=== PATIENT | male | born 1985 | race Two or more races ===

== ENCOUNTER 2023-04-24 21:30 | Emergency (ER) | payer MEDICAID ==
[~2023-04-24] VITALS: Ht 170.2 cm; Wt 81.6 kg
[2023-04-24 22:18] VITALS: BP 136/85; TEMP 98.7; O2SAT 99
[2023-04-24] MEDS ORDERED: TDAP [DIPH/PERTUSSIS/TET] 0.5 ML VIAL IM ONE ×2 (22:30→22:40)
[2023-04-24] MEDS ORDERED: CIPROFLOXACIN HCL 250 MG TABLET PO ONE (22:30)
[2023-04-24] MEDS ORDERED: IBUPROFEN 600 MG TABLET PO ONE (22:30)
[2023-04-24] MEDS ORDERED: CIPR-263 PO (22:37)
[2023-04-24] MEDS ORDERED: CIPROFLOXACIN HCL 500 MG TABLET ONE ×2 (22:39→22:41)
[2023-04-24] MEDS ORDERED: IBUPROFEN 600 MG TABLET ONE ×2 (22:40→22:42)
== END 2023-04-24 22:55 | disposition home or self-care (01) ==
LOC: ER 21:44
DX: S91.332A Puncture wound without foreign body, left foot, initial encounter (principal); X58.XXXA Exposure to other specified factors, initial encounter; Y93.89 Activity, other specified; Y92.89 Other specified places as the place of occurrence of the external cause; Y99.8 Other external cause status
CPT/HCPCS: 90715